=== PATIENT | male | born 1980 | race African-American/Black ===

== ENCOUNTER 2021-09-23 09:00 | Outpatient (CLI) | payer OTHER ==
[~2021-09-23 09:00] MED LIST: PRILOSEC20 MG PO
== END 2021-09-23 09:30 | disposition home or self-care (01) ==
LOC: PPH VACUNA 09:00
PROVIDERS: ATTEND Emergency Medicine Pediatric Emergency Medicine
DX: Z23 Encounter for immunization (principal)

== ENCOUNTER 2022-08-08 15:30 | Outpatient (CLI) | payer OTHER | END 2022-08-08 23:00 | disposition home or self-care (01) | LOC: LAB 15:30 | PROVIDERS: ATTEND Internal Medicine Gastroenterology | DX: K30 Functional dyspepsia (principal); Z12.11 Encounter for screening for malignant neoplasm of colon; Z00.00 Encounter for general adult medical examination without abnormal findings ==

== ENCOUNTER 2023-01-10 00:33 | Emergency (ER) | payer OTHER ==
[~2023-01-10] VITALS: Ht 165.1 cm; Wt 72.6 kg
[2023-01-10] MEDS ORDERED: CATAFLAN (00:47)
[2023-01-10] MEDS ORDERED: ORPHENADRINE C100 MG PO (02:57)
[2023-01-10] MEDS ORDERED: KETO10TA2 PO (02:57)
== END 2023-01-10 03:12 ==
LOC: ER 00:33
DX: M54.50 Low back pain, unspecified (principal)

== ENCOUNTER → 2023-09-17 08:06 | Outpatient (CLI) | payer OTHER ==
[~2023-09-17 08:06] MED LIST changes: +CATAFLAN; +KETO10TA2 PO; +ORPHENADRINE C100 MG PO
[2023-09-17 09:13] LABS: HEMATOCRIT 42.5 % (39.0-48.0); HEMOGLOBIN 14.1 g/dL (13-16.00); MEAN CELL VOLUME 84.2 fL (80.0-100.00); MEAN CORPUSCULAR HEMOGLOBIN 27.9 pg (27.00-32.0); MEAN CORPUSCULAR HGB CONC 33.1 g/dl (32.0-36.0); PLATELET COUNT 222 K/uL (150-450); RED BLOOD COUNT 5.05 M/uL (4.00-6.00); RED CELL DISTRIBUTION WIDTH 14.4 % (11.5-14.5)
[2023-09-17 09:41] LABS: ALBUMIN 3.9 gm/dL (3.4-5.0); BILIRUBIN TOTAL 0.54 mg/dL (0.3-1.2); CALCIUM 9.6 mg/dL (8.5-10.1); CHOL HDL RATIO 3.7 (0-5.0); CREATININE SERUM 0.96 mg/dL (0.70-1.30); GFR 85.49; GLOBULINA 3.9 G/DL (2.4-3.5); POTASSIUM 3.93 mEq/L (3.5-5.1); TOTAL PROTEIN 7.8 gm/dL (6.4-8.2)
== END | disposition home or self-care (01) ==
LOC: LAB 08:06
PROVIDERS: ATTEND Internal Medicine Gastroenterology
DX: K29.00 Acute gastritis without bleeding (principal); B96.81 Helicobacter pylori [H. pylori] as the cause of diseases classified elsewhere; K30 Functional dyspepsia; B18.2 Chronic viral hepatitis C; R10.10 Upper abdominal pain, unspecified

== ENCOUNTER → 2024-01-02 13:47 | Outpatient (CLI) | payer OTHER | END | disposition home or self-care (01) | LOC: LAB 13:47 | PROVIDERS: ATTEND Urology | DX: R97.20 Elevated prostate specific antigen [PSA] (principal) ==